=== PATIENT | male | born 1955 | race Caucasian/White ===

== ENCOUNTER → 2023-10-01 10:27 | Outpatient (BNVA) | payer MEDICARE, SELFPAY | PROVIDERS: Visit Provider Orthopaedic Surgery | DX: M54.50 Low back pain, unspecified (principal); M54.9 Dorsalgia, unspecified | CPT/HCPCS: 72110; 99204 ==

== ENCOUNTER 2023-11-14 09:43 | Outpatient (CLI) | payer MEDICARE, SELFPAY ==
--- NOTE | 2023-11-14 09:50 | CT_ITS ---
WS: [id number] CT MYELOGRAM LUMBAR SPINE HISTORY: low back pain TECHNIQUE: Contiguous 2.0 mm axial imaging performed from T12 through the mid sacral level. Bone and soft tissue windows reviewed. Sagittal and coronal reformats are submitted and reviewed. DLP: 277.[address] scans at [facility] use at least one of these dose optimization techniques: automated e xposure control; mA and/or kV adjustment per patient size (includes targeted exams where dose is matc hed to clinical indication); or iterative reconstruction. COMPARISON: None available. Posterior lumbar fusion at L5-S1. No hardware fracture. L5 anterolisthesis by 10 mm. Mild concave def ormity superior endplate of L4. L3 vertebral body height is maintained. Prior vertebroplasties and co mpression fractures at T12, L1 and L2. Good injection of the subarachnoid contrast. L1-L2: No stenosis. Mild facet arthritis and ligamentum flavum hypertrophy. L2-L3: Mild annular disc bulging. Very subtle shallow LEFT foraminal disc protrusion with mild LEFT f oraminal stenosis. L3-L4: Mild osteophytic ridging. Moderate central stenosis. There is asymmetric ligamentum flavum hyp ertrophy on the RIGHT. There may've been debridement of the ligamentum flavum on the LEFT. Mild centr al, bilateral subarticular recess and moderate RIGHT foraminal stenosis. L4-L5: Significant artifact at the L4-5 disc level from the hardware. Mild to moderate foraminal sten osis. No high-grade stenosis is identified. L5-S1: Annular disc bulging. The foramina and the central canal are obscured by the hardware artifact . Heavy calcification throughout the abdominal aorta. No lucency is identified surrounding the pedicle and pelvic screws. IMPRESSION: 1. Good contrast opacification of the subarachnoid space. 2. Posterior lumbar fusion at L5-S1 causing significant artifact in the lower lumbar region. 3. Grade 1 anterolisthesis of L5 by 10 mm. Anterolisthesis is very similar to the prior study from . 4. L2-3: Shallow proximal LEFT foraminal disc protrusion with mild foraminal stenosis. 5. L3-4: Mild central, bilateral subarticular recess and moderate RIGHT foraminal stenosis. Asymmetri c ligamentum flavum hypertrophy greatest on the RIGHT. 6. L4-5: Mild to moderate bilateral foraminal stenosis.
--- NOTE | 2023-11-14 13:30 | IR_ITS ---
WS: [id number] LUMBAR MYELOGRAM HISTORY: low back pain COMPARISON: No similar studies. FLUOROSCOPY TIME: 3min [id number] # of spot films: 9 Procedure, risks and complications were explained to the patient. Risks including bleeding, infection , headaches, allergic reaction and seizures. Consent has been obtained. With the patient in prone position the skin over the lumbar region is cleansed with ChloraPrep and an esthetized with lidocaine. 22-gauge spinal needle is inserted into the thecal sac at the appropriate level determined by fluoroscopy. Omnipaque 240; 12 ml is injected slowly under fluoroscopy with no co mplications. Needle bevel is perpendicular to the longitudinal fibers of the dura. Stylet is reinsert ed prior to removal of the needle. Patient tolerated the procedure well. Patient will proceed to CT f or further evaluation. Prior posterior lumbar fusion at L5-S1. Prior vertebral plasties at multiple levels including T10, T1 1, L1 and L2. Bones are osteopenic. There is a dorsal column stimulator projecting over the LEFT abdo men. IMPRESSION: 1. Uncomplicated lumbar myelogram. 2. Patient to proceed to CT evaluation. 3. Posterior lumbar fusion at L5-S1. 4. Numerous prior vertebroplasties at T10, T12 L1 and L2.
== END 2023-11-14 09:44 | disposition home or self-care (01) ==
LOC: RAD 09:44
PROVIDERS: PCP Family Medicine; Visit Provider Orthopaedic Surgery
DX: M51.26 Other intervertebral disc displacement, lumbar region (principal); Z98.1 Arthrodesis status; M48.061 Spinal stenosis, lumbar region without neurogenic claudication; M47.816 Spondylosis without myelopathy or radiculopathy, lumbar region; M24.28 Disorder of ligament, vertebrae
CPT/HCPCS: 62304; 72132; Q9966

== ENCOUNTER → 2023-12-12 14:26 | Outpatient (BNVA) | payer MEDICARE, SELFPAY | PROVIDERS: PCP Family Medicine; Visit Provider Orthopaedic Surgery | DX: M48.062 Spinal stenosis, lumbar region with neurogenic claudication; Z98.1 Arthrodesis status; Z96.82 Presence of neurostimulator; Z01.812 Encounter for preprocedural laboratory examination | CPT/HCPCS: 36415; 80053; 81003; 83036; 85025; 99214 ==

== ENCOUNTER 2024-01-01 13:34 | Inpatient (IN) | payer MEDICARE, SELFPAY ==
[2024-01-01] VITALS (25 sets, daily range): BP systolic 94–159; BP diastolic 50–82; PULSE 65–90; RESP 9–24; TEMP 36.1–36.6; O2SAT 94–100; BMI 18.1
--- NOTE | 2024-01-01 | XR_ITS ---
WS: [email or web address] XR lumbar spine 2-3V* [id number] REASON FOR EXAM: OR pic, fusion FINDINGS: Previous hardware at L5-S1 removed. Posterior decompression with posterior pedicle screw placement L3-S1. Oblique pelvic screws at the S2 level. Interconnecting rods from L3 to the pelvis. Surgical appliances are intact and in proper position and alignment IMPRESSION: Revision and extension of posterior lumbar fusion as above.
[2024-01-01] MEDS: sodium chloride 0.9% 1,000 ML 30 ML IV (07:29)
[2024-01-01 07:55] LABS: Basophils % 0.6 %; Eosinophils # 0.1 10^3/uL (0.0-0.8); Eosinophils % 2.9 %; Hematocrit 39.5 % (37-53); Lymphocytes # 1.3 10^3/uL (0.8-4.8); Lymphocytes % 27.7 %; Mean Corpuscular HGB Conc 33.4 g/dL (30-55); Mean Corpuscular Volume 92.7 fl (82-101); Mean Platelet Volume 9.5 fL (7.4-10.4); Monocytes # 0.5 10^3/uL (0.2-0.9); Monocytes % 10.4 %; Neutrophils # 2.81 10^3/uL (1.8-7.7); Neutrophils % 58.4 %; Nucleated Red Blood Cells % 0 %; Platelet Count 242 10^3/cmm (157-399); Red Blood Count 4.26 10^6/uL (3.85-5.65); White Blood Count 4.81 10^3/uL (3.29-11.43)
--- NOTE | 2024-01-01 08:08 | P.ANESASSM_ITS ---
Pre-Anesthetic Assessment Height/Weight: Height 1.85 m Weight 62.142 kg Temp Pulse Resp BP Pulse Ox O2 Del Method 97.7 F 70 18 159/82 98 Room Air 01/01/24 07:12 01/01/24 07:12 01/01/24 07:12 01/01/24 07:12 01/01/24 07:12 01/01/24 07:21 Preop Diagnosis: Lumbar stenosis with neurogenic claudication Operation Date: 01/01/24 09:00 Proposed Procedures p Spinal Fusion PSF(L3/4,L4/5,L5/S1)(Not Applicable) - Tyshawnbritta Spencer Caron, DO s Lumbar Decompression(L3/4,L4/5)(Not Applicable) - Tyshawnbritta Spencer Caron, DO s Sacroiliac Joint Fusion SI Joint Fusion(Not Applicable) - Tyshawnbritta Spencer Caron, DO s Hardware Removal Lumbar(L5/S1 screw)(Not Applicable) - Tyshawn Spencer Caron, DO Last intake: Intake Last Liquid Date 12/31/23 Last Liquid Time 22:00 Last Solid Date 12/31/23 Last Solid Time 22:00 Social Tobacco 1/2 ppd x 60 years pack(s) per day Exam alert, oriented x 3, clear to auscultation bilaterally and regular rate & rhythm Airway Submandibular: within normal limits Cervical ROM: within normal limits Mallampati: Class I Dentition: false Pulmonary Chronic Obstructive Pulmonary Disease Anesthetic Plan ASA status: 3 Anesthesia: General Risk of > 500 ml blood loss (7ml/kg in children): Yes, adequate IV access and fluids planned Medications/Allergies Home Medications Medication Instructions Recorded Confirmed Last Taken Type alendronate 70 mg tablet 70 mg PO Q7D 12/18/23 01/01/24 12/30/23 History hydrocodone 10 mg-acetaminophen 1 tab PO Q8H PRN Pain 12/18/23 01/01/24 01/01/24 History 325 mg tablet ibuprofen 200 mg capsule 400 mg PO Q6H PRN Pain 12/18/23 12/31/23 Unknown History tamsulosin 0.4 mg capsule 0.4 mg PO DAILY 12/18/23 01/01/24 01/01/24 History Allergies Allergy/AdvReac Type Severity Reaction Status Date / Time codeine Allergy ADR-Itching Verified 12/18/23 09:56 gabapentin Allergy itching Verified 12/18/23 10:03 Milk Containing Products Allergy ADR-Gastrointestinal Verified 12/31/23 13:56 (Dairy) Upset Current Medications Generic Name Dose Route Start Last Admin Trade Name Freq PRN Reason Stop Dose Admin Sodium Chloride 1,000 mls @ 30 mls/hr 01/01/24 07:15 01/01/24 07:29 Sodium Chloride 0.9% IV 01/02/24 07:14 30 mls/hr .Q24H CRYSTAL Administration Data Anesthesia 01/01/24 07:40 01/01/24 07:25 Short CBC 01/01/24 Range/Units 07:40 WBC 4.81 (3.29-11.43) 10^3/uL Hgb 13.20 (11.27-16.99) g/dL Hct 39.5 (37-53) % MCV 92.7 (82-101) fl Plt Count 242 (157-399) 10^3/cmm Neut % (Auto) 58.4 % Neut # (Auto) 2.81 (1.8-7.7) 10^3/uL Cardiac Studies: 2 No Data to Display
[2024-01-01 08:15] LABS: Alanine Aminotransferase 13 U/L (0-41); Albumin Level 4.3 g/dL (3.5-5.2); Alkaline Phosphatase 90 U/L (40-130); Anion Gap 11.4 (5-19); Aspartate Amino Transferase 17 U/L (0-40); Blood Urea Nitrogen 14 mg/dL (8-23); Calcium 8.8 mg/dL (8.5-10.5); Carbon Dioxide 29 mmol/L (22-29); Chloride 101 mmol/L (98-107); Globulin 2.3 g/dL (1.3-4.6); Glomerular Filtration Rate 95.8 mL/min (90-130); Glucose 91 mg/dL (65-115); Osmolality Calculated 284 mOsm/kg (285-295); Potassium 4.4 mmol/L (3.5-5.1); Sodium 137 mmol/L (136-145); Total Bilirubin 0.4 mg/dL (0.15-1.2); Total Protein 6.6 g/dL (6.6-8.7)
--- NOTE | 2024-01-01 08:28 | W.PM.OPSUD ---
Surgery/Procedure H&P Update DATE OF PROCEDURE: January 01, 2024 DATE H&P PERFORMED: 12/18/23 H&P UPDATE INFORMATION: I have reviewed H&P completed within last 30 days, I have examined patient prior to procedure and No changes to prior documentation PREOP DIAGNOSIS: Lumbar stenosis with neurogenic claudication PLANNED PROCEDURE: Operation Date: 01/01/24 09:00 Proposed Procedures p Spinal Fusion PSF(L3/4,L4/5,L5/S1)(Not Applicable) - DO ben Bhatia Lumbar Decompression(L3/4,L4/5)(Not Applicable) - DO ben Bhatia Sacroiliac Joint Fusion SI Joint Fusion(Not Applicable) - DO ben Bhatia Hardware Removal Lumbar(L5/S1 screw)(Not Applicable) - Tyshawn Hinkle DO
[2024-01-01] MEDS: ceFAZolin 2,000 MG in sodium chloride 0.9% (plus) 50 ML 100 MG IV ×2 (08:54→16:59)
--- NOTE | 2024-01-01 10:08 | SUR.OPER ---
called and notified her of surgical start.
[2024-01-01] MEDS: vancomycin 1,000 MG SDV 1000 MG XX (12:23)
[2024-01-01] MEDS: heparin, porcine 1,000 unit/mL INJ 10 mL 10000 UNIT IRRIGATION (12:23)
[2024-01-01] MEDS: lidocaine-epi 1% 20 mL INJ INJECTION (12:24)
--- NOTE | 2024-01-01 13:33 | PC.NURSE ---
1515 - left art line removed with pressure applied for 5 minutes and secured with coban
--- NOTE | 2024-01-01 13:38 | P.OP_ITS ---
Operative Report Date of procedure: January 01, 2024 Pre-op diagnosis: Lumbar stenosis with neurogenic claudication Post-op diagnosis: same Procedure done: 1. Posterior fusion L3-pelvis 2.? Instrumentation L3-S1 3.? Lumbopelvic instrumentation 4. open right Sacral iliac fusion 5. open left sacral iliac fusion 6. L3/4 laminectomy with partial facetectomy 7. L4/5 laminectomy with partial facetectomy 8. use of computer navigation / stereotactic spine 9. use of autograft from same incision 10. allograft 11. Bone marrow aspirate from right iliac crest 12. removal of spinal cord stimulator 13. removal of battery for spinal stimulator 14. Removal of deep hardware from spine Surgeon: Tyshawn Hinkle DO Estimated blood loss (mL): 300 Procedure: 1. Posterior fusion L3-pelvis 2.? Instrumentation L3-S1 3.? Lumbopelvic instrumentation 4. open right Sacral iliac fusion 5. open left sacral iliac fusion 6. L3/4 laminectomy with partial facetectomy 7. L4/5 laminectomy with partial facetectomy 8. use of computer navigation / stereotactic spine 9. use of autograft from same incision 10. allograft 11. Bone marrow aspirate from right iliac crest 12. removal of spinal cord stimulator 13. removal of battery for spinal stimulator 14. Removal of deep hardware from spine Patient is brought to the operative suite.? After undergoing anesthesia, the patient had neuro monitoring attached.? Patient was then placed in the prone position on the [place] table.? All areas of impingement were well-padded.? Patient was then prepped and draped in the normal sterile fashion.? Skin incision made over the battery for cyst on the left flank. Using the previous incision the skin was cut and battery was identified. The battery was covered in a mesh that this mesh was bovied out around it and then battery was removed wires were cut and the other end of the wires were held with a Brendan. Next tension was brought to the neurostimulator. Skin incision made over the previous incision in the thoracic spine with a neurostimulator was. Subperiosteal dissection was made out on the lamina retractor was placed wires were identified. Wires were traced down into the epidural space. Drill and rongeurs were used to free up scar tissue and bone growth. The paddle was identified and then using a curette was slowly removed. Once the paddle was removed wound was irrigated. Skin incision was then made over the L3 to the sacrum.? Subperiosteal dissection was made out to the transverse processes of L3 bilaterally,?L4 bilaterally L5 bilaterally and sacral ala bilaterally.? The L5-S1 pedicle screws were identified caps remove and cross-link and rods were removed and then the screws were removed. The [employer] bone marrow aspirate kit was used to aspirate bone marrow aspirate.? This was done by using the sharp probe to open up the bone.? Aspiration was performed and then the blunt probe was then used to dissect down to through the bone tunnel.? An aspirating well drawn back a millimeter approximately 20 cc of bone marrow aspirate was used.? Admixed with the allograft and autograft bone that will be used. Next tension was brought to placing the fiducial for the computer navigation.? 2 pins were placed into the right iliac crest.? The fiducial was attached.? The C- arm was brought in and information from the C arm was then linked to the computer used for placing the screws.? Next attention was brought to placing the pedicle screws.? This was done by using the gearshift probe.? The probe was used to identify the pedicle.? Then the pedicle feeler was used followed by placement of screw.? This was done at?L3 bilaterally L4 bilaterally, L5 bilaterally and S1 bilaterally. Next attension was brought to placing the iliac screws.? This was done using the sacral ala iliac technique.? The gearshift probe linked to computer navigation was then placed through the sacral ala into the sacroiliac joint into the iliac crest.? Next the pedicle feeler was used followed by the computer navigated tap.? And then the screw was passed a 80 mm screw was placed on the right side and a 100 mm screw was placed on the left side.? Both the screws were 9.5 mm in diameter. Next attension was brought to performing the open and sacral iliac fusion.? This was done by again using the gearshift probe linked to computer navigation.? Followed by pedicle feeler followed by placing a wire and then the drill drilled over the wire and then bone graft was packed into the sacroiliac joint and into the drill hole.? And the sacroiliac screw was then placed.? This technique was done on both the right and left side. Next attention was brought to performing the laminectomy of L3.? This was done using the high-speed bur Kerrisons and curettes.? Once the lamina was removed and then attention was brought to performing a partial facetectomy on the contralateral side.? This was done again using the high-speed bur curettes and Kerrisons.? The ligamentum flavum was taken down bilaterally from L3 to L4.? Attention was then brought to the facet on the ipsilateral side.? The facet was taken down.? The L4 nerve was decompressed as it passed around the L4 pedicle.? The laminectomy was done for purposes of decompressing the nerve as well as placement of the cage.? The L3 nerve was identified as it traversed through the L3/4 foramen.? The L4 nerve was traced around the L4 pedicles bilateral.? .? There was found to be in good repair. Next attention was brought to performing the laminectomy ofL4.? This was done using the high-speed bur Kerrisons and curettes.? Once the lamina was removed and then attention was brought to performing a partial facetectomy on the contralateral side.? This was done again using the high-speed bur curettes and Kerrisons.? The ligamentum flavum was taken down bilaterally from L4 to L5.? Attention was then brought to the facet on the ipsilateral side.? The facet was taken down.? The L5 nerve was decompressed as it passed around the L5 pedicle.? The L4 nerve was traced out the foramen felt to be adequately decompressed. Dura was in good repair. Attention was then brought to attaching the rods to the screws placed in the L3 bilaterally, L4 bilaterally, L5 bilaterally and S1 bilaterally.? This was then attached to the sacroiliac screw providing the lumbopelvic fixation.? Caps were torqued into position. Locking the construct in place. Wound was copiously irrigated and then attention was brought to decorticating the facets and transverse processes laterally.? Bone that was taken down from the lamina was used along with osteoamp fibers and sponges were packed into the lateral gutters along the facet joints.? This was done bilaterally. Wound was then closed in a layered fashion starting with the thoracolumbar fascia.? 0-vicryl was used the sub cutaneous tissue was closed with 2-0 vicryl and skin with 4-0 monocryl.? Glue was then used to seal the skin and a steril dressing was applied.? Patient was then placed in the supine position. The endotracheal tube was removed and patient was transferred to the PACU in stable condition.
[2024-01-01] MEDS: fentaNYL 50 mcg/mL INJ 2mL IVP ×2 (13:44→13:58)
--- NOTE | 2024-01-01 14:20 | ANE.PACU2 ---
Inpatient post-anesthesia follow up: Airway intact: Yes Vital signs: Temperature 97.8 F Pulse Rate 78 Respiratory Rate 18 Blood Pressure 129/62 Pulse Oximetry 98 Oxygen Delivery Me thod Room Air Oxygen Flow Rate 6 Fraction of Inspir ed Oxygen Hydration adequate: Yes Nausea and vomiting: Yes Pain level: 2 Mental status: Baseline
[2024-01-01] MEDS: lactated ringers 1,000 ML 90 ML IV (14:48)
[2024-01-01] MEDS: ketorolac 30 mg/mL INJ IVP (15:44)
[2024-01-01] MEDS: morphine 4 mg/mL SDV 1 mL 2 MG IVP (16:23)
[2024-01-01] MEDS: docusate sodium 100 mg Capsule PO (17:00)
[2024-01-01] MEDS: HYDROcodone-acetaminophen 10-325 mg Tablet PO (20:57)
[2024-01-02] VITALS: BP 119/62; PULSE 78; RESP 18; TEMP 37.1; O2SAT 96
[2024-01-02] MEDS: ceFAZolin 2,000 MG in sodium chloride 0.9% (plus) 50 ML 100 MG IV ×2 (00:11→08:04)
[2024-01-02] MEDS: lactated ringers 1,000 ML 90 ML IV (01:35)
[2024-01-02] MEDS: HYDROcodone-acetaminophen 10-325 mg Tablet PO ×3 (03:24→14:28)
[2024-01-02 04:00] VITALS: BP 101/60; PULSE 76; RESP 18; TEMP 36.9; O2SAT 95
--- NOTE | 2024-01-02 07:13 | PM.DCS ---
Discharge Providers Date of Admission: 01/01/24 13:34 Date of Discharge: January 02, 2024 Attending Provider at Admission: Tyshawn Hinkle DO Attending Provider at Discharge: Tyshawn Hinkle DO Primary Care Provider: Ashutosh Westfall Reason for Visit Reason for Visit: [id number], M48.062 Physical Exam Narrative: Patient doing well sitting up in bed has been up walking already. Minimal pain. Drain has minimal output. Urinary Catheter Management: [place]: Cath Placed During This Visit: yes Reason for Continuing Indwelling Catheter: Other Urinary Catheter Date of Insertion: 01/01/24 Urinary Catheter Time of Insertion: 10:00 Discharge Data Studies Completed and Pending Completed Studies During Hospitalization Category Date Time Status XR lumbar spine 2-3V* 11090 Routine Exams 01/01/24 Completed Pending at discharge Category Date Time Status C-arm Fluoroscopy 40014 Routine Exams 01/01/24 07:01 Taken Laboratory Results WBC 4.81 10^3/uL (3.29-11.43) 01/01/24 07:40 RBC 4.26 10^6/uL (3.85-5.65) 01/01/24 07:40 Hgb 13.20 g/dL (11.27-16.99) 01/01/24 07:40 Hct 39.5 % (37-53) 01/01/24 07:40 MCV 92.7 fl (82-101) 01/01/24 07:40 MCH 31.0 pg (27-33) 01/01/24 07:40 MCHC 33.4 g/dL (30-55) 01/01/24 07:40 RDW 13.0 % (12.1-15.1) 01/01/24 07:40 Plt Count 242 10^3/cmm (157-399) 01/01/24 07:40 MPV 9.5 fL (7.4-10.4) 01/01/24 07:40 Neut % (Auto) 58.4 % 01/01/24 07:40 Lymph % (Auto) 27.7 % 01/01/24 07:40 [place] % (Auto) 10.4 % 01/01/24 07:40 Eos % (Auto) 2.9 % 01/01/24 07:40 Baso % (Auto) 0.6 % 01/01/24 07:40 Neut # (Auto) 2.81 10^3/uL (1.8-7.7) 01/01/24 07:40 Lymph # (Auto) 1.3 10^3/uL (0.8-4.8) 01/01/24 07:40 [place] # (Auto) 0.5 10^3/uL (0.2-0.9) 01/01/24 07:40 Eos # (Auto) 0.1 10^3/uL (0.0-0.8) 01/01/24 07:40 Baso # (Auto) 0.0 10^3/uL (0.0-0.1) 01/01/24 07:40 Nucleated RBC % (auto) 0 % 01/01/24 07:40 Nucleated RBCs # 0.0 /100WBC 01/01/24 07:40 Sodium 137 mmol/L (136-145) 01/01/24 07:25 Potassium 4.4 mmol/L (3.5-5.1) 01/01/24 07:25 Chloride 101 mmol/L (98-107) 01/01/24 07:25 Carbon Dioxide 29 mmol/L (22-29) 01/01/24 07:25 Anion Gap 11.4 (5-19) 01/01/24 07:25 BUN 14 mg/dL (8-23) 01/01/24 07:25 Creatinine 0.8 mg/dL (0.7-1.2) 01/01/24 07:25 GFR Calculation 95.8 mL/min (90-130) 01/01/24 07:25 Glucose 91 mg/dL (65-115) 01/01/24 07:25 Calculated Osmolality 284 mOsm/kg (285-295) L 01/01/24 07:25 Calcium 8.8 mg/dL (8.5-10.5) 01/01/24 07:25 Total Bilirubin 0.4 mg/dL (0.15-1.2) 01/01/24 07:25 AST 17 U/L (0-40) 01/01/24 07:25 ALT 13 U/L (0-41) 01/01/24 07:25 Alkaline Phosphatase 90 U/L (40-130) 01/01/24 07:25 Total Protein 6.6 g/dL (6.6-8.7) 01/01/24 07:25 Albumin 4.3 g/dL (3.5-5.2) 01/01/24 07:25 Globulin 2.3 g/dL (1.3-4.6) 01/01/24 07:25 Blood Type A Positive 01/01/24 07:25 Rho(D) Type Rh positive 01/01/24 07:25 Antibody Screen Negative 01/01/24 07:25 Vitals Last Vital Signs Temp 98.5 F 01/02/24 04:00 Pulse 76 01/02/24 04:00 Resp 18 01/02/24 04:00 BP 101/60 01/02/24 04:00 Pulse Ox 95 01/02/24 04:00 O2 Del Method Room Air 01/02/24 04:00 O2 Flow Rate 6 01/01/24 13:30 Discharge Plan Discharge Patient Disposition: Home Condition: Stable Prescriptions: New hydrocodone-acetaminophen 10-325 mg tablet 1 tab PO Q4H PRN (Reason: pain) 7 Days Qty: 40 0RF Continued hydrocodone-acetaminophen 10-325 mg tablet 1 tab PO Q8H PRN (Reason: Pain) tamsulosin 0.4 mg capsule 0.4 mg PO DAILY ibuprofen 200 mg capsule 400 mg PO Q6H PRN (Reason: Pain) alendronate 70 mg tablet 70 mg PO Q7D Discharge Orders: Discharge Order (Routine); Ordered 01/02/24 Ordered By: Tyshawn Hinkle Discharge Diet: Advance as tolerated Discharge Activity: Limit activity as instructed Patient Instructions: Opioid Safety Activity Restrictions/Additional Instructions: Thank you for [facility] for your care! The following is a list of instructions, from your provider, to follow upon your discharge to ensure you have the optimal recovery from your recent injury orsurgery. Follow-up care is a moran part of your treatment and safety. Be sure to make and go to all appointments, and call your doctor if you are having problems. If you do not already have a follow-up appointment made, call Dr. Hinkle office in the next 1-3 days to make follow up appointment for 1 weeks at [phone]. It is also a good idea to know your test results and keep a list of the medicines you take. Medications will be prescribed for you at your provider's discretion. These medications are to be used as instructed; if they are taken more often that prescribed they will not be refilled early and in most cases will not be refilled at all. > When a refill is needed,you should contact [facility] 2-3 business days before your prescription runs out. Medications will NOT be refilled by operations and maintenance specialist providers after hours! > Many pain medications contain Tylenol (Acetaminophen). Do not consume more than 4,000 mg of Tylenol per day in total with any combination ofmedications. > Pain medications can cause constipation. Please use an over the counter stool softener as directed, while taking pain medications. Consulty our local pharmacist with questions or recommendations on stool softeners. If constipation persists, contact our office or your primary care provider. > While under our care,you are not to receive pain medications or other controlled substances from any other provider unless our office is notified and approves. Any attempts to do so will result in refusal to prescribe any further pain medications and possible dismissal from our practice. ? Your wound and/or dressing should remain clean and dry for 7 days after surgery. > It is normal for there to be a small amount of discharge (bloody or blood tinged) present from a surgical wound for the first 1-3days. > s ? Showering is permitted, however we ask that you do not take a bath, sit in a whirlpool / Jacuzzi, or go swimming for 1 month. For only the first 14 days after surgery, lt wilt be necessary for you to cover your wound/dressing with plastic and tape to keep it dry. ? Walking is essential for the healing process after surgery. We would like you to slowly advance your walking. This should be done on relatively flat clear ground (inside or out) or can be done on a treadmill. Remember this goal does not have to happen all at once, slowly increase your distance and duration. This can be broken into more more than one walk per day as tolerated. Patients who walk as directed after surgery rarely require Physical Therapy. In the unlikely event this issue arises your provider will direct hospital staff to make the appropriate arrangements. ? No lifting over 5 pounds {a gallon of milk) or bending/twisting until further notice. Each of these activities places an unnecessary amount of stress onto the body and can impede the delicate healing process. > Instead of bending at the waist, keep your back straight and bend at the knees. > Instead of twisting your torso, keep your back straight and turn your entire body with your feet. ? You may sleep in any position which makes you comfortable. Many patients find comfort sleeping in a reclining chair. It is not abnormal to have difficulty sleeping for the first several weeks following your surgery. We recommend trying Benadry! or Tylenol PM as directed to help with your sleeping difficulties. Both medications are over the counter and available withoutprescription. ? NO SMOKING!!! Smoking dramatically increases the probability of developing postoperative wound infections. ? Common complaints after lumbar and/or thoracic spine surgery include, but are not limited to: numbness and/or tingling in the legs, pain around the incision and surrounding tissues, muscle spasms, or stiffness of the middle to low back. Contact our office if these symptoms persist or if an acute change occurs. ? No driving for the first 3-5days, and not while taking narcotics until seen at your follow-up appointment and cleared. There are no restrictions for riding on short trips, however if you take a longer trip, arrangements should be made to make regular stops to get out of the vehicle and stretch . ? Swelling is an unfortunate event that will take place with any surgery and is the primary source of your postoperative discomfort. While walking and regular approved activities helps control inflammation, there are additional steps you can take to minimizeswelling. > Place ice over the surgical site and surrounding tissue for twenty minutes, followed by applying a low/medium heat (heating pad) for an additional twenty minutes every 1-2 hours as needed for painrelief. > You may use of over the counter anti-inflammatory medications (Ibuprofen, Motrin, Aleve, Advil, etc) as directed on the package label. These types of medicines wm significantly reduce the amount of discomfort you experience after surgery from swelling. It should be noted that if you have and allergy to any of these medications, or a history of ulcers or kidney disease you should consult you primary care provider prior to starting these medications. Discharge Attestations Time Spent in Discharge Care*: less than 30 min Quality Metrics Clinical Quality Measures [ No reported AMI, CVA or VTE this stay] Coding Level of Care Code Acute Code for g Erik
[2024-01-02 07:16] VITALS: BP 102/60; PULSE 68; RESP 17; TEMP 36.7; O2SAT 96
[2024-01-02] MEDS: docusate sodium 100 mg Capsule PO (08:04)
[2024-01-02] MEDS: tamsulosin 0.4 mg Capsule PO (08:04)
--- NOTE | 2024-01-02 10:55 | PC.CHAP ---
Pastoral Care Encounter/Spiritual Assessment Type of Contact [] Declined nanosystems engineer visit [] Patient/Family/Request visit [] Outpatient visit [] Follow-up visit [] Physician referral [] Code/Alert [x] Routine visit [] Staff referral [] Actively dying [] Patient sleeping [] Family support [] [] Out of room [] Palliative care [] [x] Receiving care in room [] Pre-surgical visit [] Trauma [] Long length of stay [] ICU visit [] Other: Relational/Emotional Strength [x] Patient feels connected with others/family/visitors/staff [] Distress [] Loneliness/isolation [] Abandonment Spirituality of Patient [x] Person of Jasmyn [] Attends Religion of their Jasmyn [x] Believes in Prayer [] Reads Bible or Voodoo materials [] There are Spiritual issues to be addressed Cloth Dye Range Operator Interventions [x] Prayer [x] Active listening [x] Non-anxious presence [x] Spiritual/emotional support [] Crisis/trauma care [x] Spiritual counseling [] Bereavement support [] Provided bereavement packet [] Provided Bible/devotional materials [] Provided toy/stuffed animal, coloring book to patient or family member [] Provided Communion [] Anointing/Ingalls [] Salvation [x] Completed spiritual assessment [] Other: Impact on Illness or Injury [] Angry [] Fearful [] Anxious [] Often cries [] Exhaustion [] Unable to work [] Unable to attend taoism [] Unable to walk/stand [] Unable to read [] Unable to drive [] Unable to eat/drink [] Unable to sleep [] Unable to be with family [] Patient intubated [] Other: Summary Surgery is going home Time spent with patient 10 mins
[2024-01-02 11:36] VITALS: BP 107/62; PULSE 75; RESP 17; TEMP 36.9; O2SAT 95
[2024-01-02] MEDS: ketorolac 30 mg/mL INJ IVP (12:11)
[2024-01-02 15:04] VITALS: BP 107/62; PULSE 75; RESP 17; TEMP 36.9; O2SAT 95
== END 2024-01-02 15:05 | disposition home or self-care (01) | DRG 455 ==
LOC: MEDSURG 14:07
PROVIDERS: Admitting Provider Orthopaedic Surgery; PCP Family Medicine; Visit Provider Orthopaedic Surgery
PROC: 0SP304Z Removal of Internal Fixation Device from Lumbosacral Joint, Open Approach (ICD-10-PCS; principal; 2024-01-01 08:30)
PROC: 0SP304Z Removal of Internal Fixation Device from Lumbosacral Joint, Open Approach (ICD-10-PCS; CPT 63005; 2024-01-01 08:30)
PROC: 0SP304Z Removal of Internal Fixation Device from Lumbosacral Joint, Open Approach (ICD-10-PCS; CPT 27280; 2024-01-01 08:30)
PROC: 0SP304Z Removal of Internal Fixation Device from Lumbosacral Joint, Open Approach (ICD-10-PCS; 2024-01-01 08:30)
DX: M48.062 Spinal stenosis, lumbar region with neurogenic claudication (principal); F17.210 Nicotine dependence, cigarettes, uncomplicated; J44.9 Chronic obstructive pulmonary disease, unspecified
CPT/HCPCS: 36415; 51702; 72100; 76000; 80053; 85025; 86850; 86900; 97161; C1713; J0690; J1100; J1170; J1644; J1885; J2250; J2270; J2405; J2704; J2710; J3010; J3370; J3490; J7030; J7120; P9045

== ENCOUNTER → 2024-01-17 07:44 | Outpatient (BNVA) | payer MEDICARE, SELFPAY | PROVIDERS: PCP Family Medicine; Visit Provider Orthopaedic Surgery | DX: Z98.1 Arthrodesis status (principal) | CPT/HCPCS: 99024 ==

== ENCOUNTER → 2024-02-13 07:50 | Outpatient (BNVA) | payer MEDICARE, SELFPAY | PROVIDERS: PCP Family Medicine; Visit Provider Orthopaedic Surgery | DX: Z98.1 Arthrodesis status (principal) | CPT/HCPCS: 72100; 99024 ==

== ENCOUNTER → 2024-03-26 07:50 | Outpatient (BNVA) | payer MEDICARE, SELFPAY | PROVIDERS: PCP Family Medicine; Visit Provider Orthopaedic Surgery | DX: Z98.1 Arthrodesis status (principal) | CPT/HCPCS: 72100; 99024 ==

== ENCOUNTER → 2024-05-21 13:52 | Outpatient (BNVA) | payer MEDICARE, SELFPAY | PROVIDERS: PCP Family Medicine; Visit Provider Orthopaedic Surgery | DX: Z98.1 Arthrodesis status (principal) | CPT/HCPCS: 72100; 99213 ==

== ENCOUNTER → 2024-07-02 13:13 | Outpatient (BNVA) | payer MEDICARE, SELFPAY | PROVIDERS: PCP Family Medicine; Visit Provider Orthopaedic Surgery | DX: Z98.1 Arthrodesis status (principal) | CPT/HCPCS: 72100; 99213 ==

== ENCOUNTER → 2024-10-08 08:13 | Outpatient (BNVA) | payer MEDICARE, SELFPAY | PROVIDERS: PCP Family Medicine; Visit Provider Orthopaedic Surgery | DX: Z98.1 Arthrodesis status (principal) | CPT/HCPCS: 72100; 99214 ==

== ENCOUNTER → 2024-10-26 14:39 | Outpatient (BNVA) | payer MEDICARE, SELFPAY | PROVIDERS: PCP Family Medicine; Visit Provider Nurse Practitioner | DX: M25.551 Pain in right hip (principal) | CPT/HCPCS: 73502; 99214 ==

== ENCOUNTER → 2025-01-12 07:58 | Outpatient (BNVA) | payer MEDICARE, SELFPAY | PROVIDERS: PCP Family Medicine; Visit Provider Orthopaedic Surgery | DX: Z98.1 Arthrodesis status (principal) | CPT/HCPCS: 72100; 99213 ==

== ENCOUNTER 2025-02-12 14:33 | Outpatient (CLI) | payer MEDICARE, SELFPAY ==
--- NOTE | 2025-02-12 14:36 | USCV_ITS ---
Francesco Caruso Age: 69 Gender: M : 1955 Exam Date: 02/12/2025 14:48 Ordering Phys: Carlita Estrada Technologist: LORI Exam Location: [facility] [place] Indication: PAD Risk Factors: Previous Vascular Surgery: RIGHT LEFT BP: 167.0 / 82.00 BP: 166.0/ 89.00 0 0 Waveform Velocity (cm/s) Velocity (cm/s) Waveform Triphasic 93.6 Iliac Prox 83.7 Triphasic Triphasic 118.4 Iliac Mid 87.4 Triphasic Triphasic 129.1 Iliac Distal 97.9 Triphasic Triphasic 185.0 COST ANALYST 118.0 Triphasic Triphasic 127.0 SFA Prox 111.0 Triphasic Triphasic 120.0 SFA Mid 176.0 Triphasic Triphasic SFA Dist Triphasic 157.0 173.0 Triphasic 102.0 POP 122.0 Triphasic Triphasic 104.0 AUTHORIZATION SPECIALIST 66.0 Triphasic Triphasic 52.0 DPA 62.0 Triphasic 0.9 VICENTE 0.9 FINDINGS Mild to moderate diffuse irregular plaques are noted in the iliac common iliac and common femoral arteries bilaterally. Resting VICENTE of 0.9 on both sides Normal/near normal arterial Doppler waveforms bilaterally CONCLUSIONS 1. Mild to moderate diffuse irregular plaques in the common iliac and common femoral arteries bilaterally with no significant stenosis 2. Borderline low resting VICENTE bilaterally suggesting mild peripheral arterial disease Dr Zachary Denson MD [facility] (Electronically Signed) Final Date: 12 February 2025 18:45 S
== END 2025-02-12 14:34 | disposition home or self-care (01) ==
PROVIDERS: PCP Family Medicine; Visit Provider Registered Nurse
DX: I70.203 Unspecified atherosclerosis of native arteries of extremities, bilateral legs (principal); R93.89 Abnormal findings on diagnostic imaging of other specified body structures
CPT/HCPCS: 93925

== ENCOUNTER 2025-02-16 06:19 | Outpatient (CLI) | payer MEDICARE, SELFPAY ==
[2025-02-16 06:41] VITALS: BMI 18.7
--- NOTE | 2025-02-16 06:58 | ECG_ITS ---
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 The perfusion scan will be documented separately. DATA: Baseline heart rate was 70 beats per minute. Baseline blood pressure was 160/78 millimeters of mercury. Target heart rate was 150. Maximum heart rate achieved was 102. which was 68 % of the predicted target heart rate. Maximum blood pressure was 168/84 millimeters of mercury. The reason for ending the test was completion of the protocol. The patient did not experience any symptoms. ELECTROCARDIOGRAM: BASELINE: Sinus rhythm. Normal axis. Otherwise, no ST-T changes suggestive of ischemia noted. No arrhythmia noted. EXERCISE: After Lexiscan injection, no ST-T changes suggestive of ischemic noted. No arrhythmia noted. CONCLUSION: Please note due to baseline abnormality of the EKG specificity and sensitivity of the EKG portion of LexiScan MIBI stress test will be low 1. EKG not suggestive of ischemia 2. Lexiscan injection unremarkable. 3. Perfusion scan will be documented separately. Electronically Signed On 03-08-2025 11:20:42 CDT by TYSHAWN SANCHEZ [email or web address]
--- NOTE | 2025-02-16 06:58 | NMCV_ITS ---
NM alcira perf SPECT r/s* [id number] Francesco Caruso Age: 69 Gender: M : 1955 Exam Date: 02/16/2025 07:38 Ordering Phys: Carlita Estrada Technologist: BETH Thornton Exam Location: [facility] Indications: CP STRESS TEST Please see separate stress test report in [facility] for full findings IMAGE PROTOCOL Rest/Stress 1 Lexiscan Day Radiopharmaceutical Dose (mCi) Administration Site Administered by Rest: Tc-99m 10.7 IV BETH Garcia Sestamibi Stress:Tc-99m 33 IV BETH Thornton Sestamijohnathon Rest: 16-Feb-2025 60 Discovery 630 Stress: 16-Feb-2025 30 Discovery 630 0.4mg Lexiscan.supine position only as patient was unable to lay prone. SPECT RESULTS Technical Quality: Good Raw Data Analysis: Normal Image Corrections: No attenuation or motion correction applied Summed Stress Score: 5 Summed Rest Score: 4 Summed Difference Score: 2 PERFUSION FINDINGS There is a small area of partially reversible perfusion defect seen in inferior wall. This is consistent with small area of prior infarct with minimal hugo- infarct ischemia in RCA territory. FUNCTIONAL RESULTS (calculated via Gated SPECT) Stress Image LV EF (%): 74 Stress EDV (mL):93 TID: 0.95 Stress ESV (mL):24 FUNCTIONAL FINDINGS: There is normal left ventricular systolic function. IMPRESSIONS 1. Abnormal myocardial perfusion imaging with small sized area of prior infarct with minimal hugo-infarct ischemia in RCA territory 2. LV systolic function is normal Mahin Crystal MD (Electronically Signed) Final Date: 18 February 2025 10:26 S
[2025-02-16] MEDS: regadenoson 0.4 Mg/5 ml Syringe IVP (08:05)
[2025-02-16 08:20] VITALS: BP 155/75; PULSE 90
== END 2025-02-16 06:20 | disposition home or self-care (01) ==
PROVIDERS: PCP Family Medicine; Visit Provider Registered Nurse
DX: R07.9 Chest pain, unspecified (principal); R06.02 Shortness of breath; R93.1 Abnormal findings on diagnostic imaging of heart and coronary circulation
CPT/HCPCS: 36415; 78452; 93017; 96374; A9500; J2785

== ENCOUNTER → 2025-03-05 12:43 | Outpatient (BNVA) | payer MEDICARE, SELFPAY | PROVIDERS: PCP Family Medicine; Visit Provider Nurse Practitioner | DX: M16.11 Unilateral primary osteoarthritis, right hip (principal); G57.01 Lesion of sciatic nerve, right lower limb; Z98.1 Arthrodesis status | CPT/HCPCS: 73502; 99213 ==

== ENCOUNTER → 2025-04-23 09:58 | Outpatient (BNVA) | payer MEDICARE, SELFPAY | PROVIDERS: PCP Family Medicine; Visit Provider Nurse Practitioner | DX: M16.11 Unilateral primary osteoarthritis, right hip (principal); G57.01 Lesion of sciatic nerve, right lower limb; Z98.1 Arthrodesis status | CPT/HCPCS: 99213 ==

== ENCOUNTER → 2025-05-18 07:36 | Outpatient (BNVA) | payer MEDICARE, SELFPAY | PROVIDERS: PCP Family Medicine; Visit Provider Podiatrist Foot & Ankle Surgery | DX: M79.89 Other specified soft tissue disorders (principal); R09.89 Other specified symptoms and signs involving the circulatory and respiratory systems; M79.671 Pain in right foot; M79.672 Pain in left foot; I83.015 Varicose veins of right lower extremity with ulcer other part of foot; I83.025 Varicose veins of left lower extremity with ulcer other part of foot; L97.511 Non-pressure chronic ulcer of other part of right foot limited to breakdown of skin; L97.521 Non-pressure chronic ulcer of other part of left foot limited to breakdown of skin | CPT/HCPCS: 99204 ==

== ENCOUNTER 2025-05-27 08:33 | Outpatient (CLI) | payer MEDICARE, SELFPAY ==
--- NOTE | 2025-05-27 09:30 | USR_ITS ---
PROCEDURE INFORMATION: Exam: US Duplex Lower Extremity Veins, Bilateral Exam date and time: 05/27/2025 10:00 AM Age: 70 years old Clinical indication: Swelling (edema) of limb; Lower extremity, left; Additional info: Bilateral lower extremity swelling, venous reflux study ble TECHNIQUE: Imaging protocol: Real-time duplex ultrasound of the bilateral extremities with 2-D zarate scale, color Doppler flow and spectral waveform analysis including responses to compression and other maneuvers (when performed) with image documentation. Complete exam focused on the lower extremity veins. COMPARISON: No relevant prior studies available. FINDINGS: Right veins: GSV distal to SFJ AP 0.22 cm. GSV distal to SFJ depth 0.59 cm GSV prox AP 0.11 cm GSV prox depth 0.85 cm GSV mid AP 0.15 cm GSV mid depth 0.43 cm GSV distal AP 0.17 cm GSV distal depth 0.56 cm SSV prox AP 0.16 cm SSV prox depth 0.49 cm SSV mid AP 0.16 cm SSV mid depth 0.61 cm Left veins: GSV distal to SFJ AP 0.41 cm. GSV distal to SFJ depth 0.64 cm GSV prox AP 0.29 cm GSV prox depth 0.66 cm GSV mid AP 0.11 cm GSV mid depth 0.78 cm GSV distal AP 0.13 cm GSV distal depth 0.75 cm SSV prox AP 0.15 cm SSV prox depth 0.62 cm SSV mid AP 0.18 cm SSV mid depth 0.48 cm US/CV paul dup insuff [facility] [id number] IMPRESSION: Greater and superficial saphenous veins patent bilaterally. Measurements as above.
== END 2025-05-27 08:34 | disposition home or self-care (01) ==
PROVIDERS: PCP Family Medicine; Visit Provider Podiatrist Foot & Ankle Surgery
DX: I87.2 Venous insufficiency (chronic) (peripheral) (principal)
CPT/HCPCS: 93970

== ENCOUNTER → 2025-06-07 09:52 | Outpatient (BNVA) | payer MEDICARE, SELFPAY | PROVIDERS: PCP Family Medicine; Visit Provider Podiatrist Foot & Ankle Surgery | DX: R09.89 Other specified symptoms and signs involving the circulatory and respiratory systems (principal); M79.671 Pain in right foot; M79.672 Pain in left foot; M79.89 Other specified soft tissue disorders; I83.029 Varicose veins of left lower extremity with ulcer of unspecified site; I83.019 Varicose veins of right lower extremity with ulcer of unspecified site; L97.929 Non-pressure chronic ulcer of unspecified part of left lower leg with unspecified severity; L97.919 Non-pressure chronic ulcer of unspecified part of right lower leg with unspecified severity | CPT/HCPCS: 99213 ==

== ENCOUNTER → 2025-06-28 08:38 | Outpatient (BNVA) | payer MEDICARE, SELFPAY | PROVIDERS: PCP Family Medicine; Visit Provider Podiatrist Foot & Ankle Surgery | DX: M79.89 Other specified soft tissue disorders (principal); I83.029 Varicose veins of left lower extremity with ulcer of unspecified site; I83.019 Varicose veins of right lower extremity with ulcer of unspecified site; L97.919 Non-pressure chronic ulcer of unspecified part of right lower leg with unspecified severity; L97.929 Non-pressure chronic ulcer of unspecified part of left lower leg with unspecified severity | CPT/HCPCS: 99214 ==